=== PATIENT | female | born 1940 | race Caucasian/White ===

== ENCOUNTER 2023-04-17 14:40 | Emergency (ER) | payer MEDICARE, SELFPAY ==
--- NOTE | 2023-04-17 14:59 | CRLHL7_ITS ---
For Patients: As a result of the Century Cures Act, medical imaging exams and procedure reports are released immediately into your electronic medical record. You may view this report before your referring provider. If you have questions, please contact your health care provider. Indication: Cough Technique: Chest 2 views Comparison: None Findings/Impression: Cardiovascular and mediastinum: Mild cardiomegaly with prominent aortic tortuosity and atherosclerotic calcification. Lungs and pleural spaces: No pleural effusion or pneumothorax. Mild reticular interstitial prominence, question pulmonary edema. Bibasilar opacities could represent atelectasis or in the left lung base pneumonia. Bones and soft tissues: Status post vertebroplasty. Left glenohumeral osteoarthritis. Dictated by Paolo Rock MD @ 04/17/2023 3:58:32 PM (Electronically Signed)
[2023-04-17 15:00] VITALS: BP 112/65; PULSE 73; RESP 20; TEMP 36.3; O2SAT 94; BMI 29.3
[2023-04-17 15:43] LABS: PCR FLU A Negative PCR FLU A (Negative); PCR FLU B Negative PCR FLU B (Negative); PCR RSV Negative PCR RSV (Negative)
--- NOTE | 2023-04-17 16:05 | ED_ITS ---
HPI - General Adult General Chief complaint: Cough Stated complaint: Upper respiratoy issues-Severe cough Time Seen by Provider: 04/17/23 16:02 History of Present Illness HPI narrative: Patient here with wet cough, SOB, fatigue after having fevers Thursday and Thursday this week. Complaining of back pain as well. From memory care at [facility] called Christie Hope . Granddaughter brought in via private car. Orientated to self and family 82-year-old woman presenting to the emergency department with granddaughter in concern of fever and cough. Has been more tired. Having some back pain. No dysuria described. No rashes noted. Had a fever over . She has been chilled. They tried some Mucinex cough suppressant. Apparently not getting regularly medication in memory cares as it sounds like is between care providers as well. Family is proposing taking her home to convalesce. Related Data Home Medications Medication Instructions Recorded Confirmed acetaminophen 500 mg tablet (Pain mg PO 04/17/23 Reliever Extra Strength (acetaminophen)) aspirin 81 mg tablet,delayed 81 mg PO DAILY 04/17/23 04/17/23 release buspirone 5 mg tablet 5 mg BID 04/17/23 cholecalciferol (vitamin D3) 25 25 mcg PO DAILY 04/17/23 04/17/23 mcg (1,000 unit) tablet citalopram 20 mg tablet 20 mg PO DAILY 04/17/23 04/17/23 folic acid 1 mg tablet 1 mg PO DAILY 04/17/23 04/17/23 levothyroxine 125 mcg tablet PO 04/17/23 levothyroxine 75 mcg tablet 75 mcg PO QAM 04/17/23 04/17/23 lisinopril 10 mg tablet 10 mg PO DAILY 04/17/23 04/17/23 methotrexate sodium 2.5 mg tablet PO 04/17/23 olanzapine 2.5 mg tablet 2.5 mg PO QPM 04/17/23 04/17/23 trazodone 100 mg tablet 100 mg PO QPM 04/17/23 04/17/23 trazodone 50 mg tablet 50 mg PO QPM 04/17/23 04/17/23 Allergies Allergy/AdvReac Type Severity Reaction Status Date / Time sulfasalazine Allergy Unknown Verified 04/17/23 14:52 Review of Systems Status of ROS: Reports: 6 or more systems reviewed and unremarkable except as noted in History and below Exam Narrative: Exam Narrative: Pleasant. Alert and quickly interactive with this examiner. Huddled under a blanket. Skin is warm and dry. Lower extremities with trace pretibial edema. Well-perfused. Oropharynx is moist not erythematous. Heart in regular rate and rhythm is little distant. Trace bibasilar crepitus right greater than left. Good air movement. No wheeze. No stridor. Abdomen is little protuberant soft appears to be nontender. Const: Vital Signs, click to edit/add: Vital Signs - 24 hr 04/17/23 15:00 Temperature 97.4 F L Pulse Rate [Right Pulse Oximeter] 73 Respiratory Rate 20 Blood Pressure [Ri ght Upper Arm] 112/65 Pulse Oximetry 94 Oxygen Delivery Me thod Room Air Documenting provider has reviewed patient's vital signs: yes Course Vital Signs Vital signs: Initial Vital Signs Temperature 97.4 F L 04/17/23 15:00 Temperature Source Temporal Artery Scan 04/17/23 15:00 Pulse Rate 73 04/17/23 15:00 Pulse Rhythm Regular 04/17/23 15:00 Respiratory Rate 20 04/17/23 15:00 Blood Pressure 112/65 04/17/23 15:00 Blood Pressure Mean 80 04/17/23 15:00 Blood Pressure Position Sitting 04/17/23 15:00 Pulse Oximetry 94 04/17/23 15:00 Oxygen Delivery Method Room Air 04/17/23 15:00 Vital Signs Temperature 97.4 F L 04/17/23 15:00 Pulse Rate 73 04/17/23 15:00 Respiratory Rate 20 04/17/23 15:00 Blood Pressure 112/65 04/17/23 15:00 Pulse Oximetry 94 04/17/23 15:00 Oxygen Delivery Method Room Air 04/17/23 15:00 Temperature 97.4 F L 04/17/23 15:00 Pulse Rate 73 04/17/23 15:00 Respiratory Rate 20 04/17/23 15:00 Blood Pressure 112/65 04/17/23 15:00 Pulse Oximetry 94 04/17/23 15:00 Oxygen Delivery Method Room Air 04/17/23 15:00 Medical Decision Making MDM Narrative Medical decision making narrative: I would screen with triple swab given community prevalence. Has no urinary tract symptoms. No reproducible pain otherwise. Symptoms appear generalized consistent with infectious etiology. Does not appear to be septic. No history of reactive airway. No heart failure history. Triple swab was negative. Vitals generally good though mildly suppressed oxygen level. I think it would be a good idea to do a chest x-ray. Family in agreement. Chest x-ray reviewed by me shows some of what I think might be a mild lower r ight infiltrate or maybe atelectatic change. Otherwise chronic changes. Radiology over-read below. Chest 2 views Comparison: None Findings/Impression: Cardiovascular and mediastinum: Mild cardiomegaly with prominent aortic tortuosity and atherosclerotic calcification. Lungs and pleural spaces: No pleural effusion or pneumothorax. Mild reticular interstitial prominence, question pulmonary edema. Bibasilar opacities could represent atelectasis or in the left lung base pneumonia. Bones and soft tissues: Status post vertebroplasty. Left glenohumeral osteoarthritis. Discussed doing further evaluation; has been otherwise vitally well here. In this case I would treat as if potential pneumonia with close follow-up as needed. Family in agreement. See patient discharge plan Lab Data Lab results reviewed: Yes I reviewed the patient's lab results Labs: Lab Results 04/17/23 Range/Units 15:00 SARS-CoV-2 (PCR) Negative SARS-CoV-2 (Negative) Influenza Type A (PCR) Negative PCR FLU A (Negative) Influenza Type B (PCR) Negative PCR FLU B (Negative) RSV (PCR) Negative PCR RSV (Negative) Discharge Plan Discharge Clinical Impression: Cough, Pneumonia Patient Disposition: Home w/ Parent or Adult Condition: Stable Additional Instructions: I think it is fine to continue with your [id number] cough syrup/Mucinex. Can take up to 10 mL per dose. Consider sleeping under the mist of a cool mist humidifier. Yes. Menthol vapors might be helpful. Doxycycline from [facility]. 8 days is likely sufficient. Return for persistent increased rate or work of breathing, recurrence of fever, increasing weakness. Prescriptions: No Action buspirone 5 mg tablet 5 mg BID trazodone 50 mg tablet 50 mg PO QPM olanzapine 2.5 mg tablet 2.5 mg PO QPM aspirin 81 mg tablet,delayed release (DR/EC) 81 mg PO DAILY acetaminophen [Pain Reliever ES(acetaminophn)] 500 mg tablet PO levothyroxine 75 mcg tablet 75 mcg PO QAM citalopram 20 mg tablet 20 mg PO DAILY methotrexate sodium 2.5 mg tablet PO trazodone 100 mg tablet 100 mg PO QPM levothyroxine 125 mcg tablet PO lisinopril 10 mg tablet 10 mg PO DAILY folic acid 1 mg tablet 1 mg PO DAILY cholecalciferol (vitamin D3) 25 mcg (1,000 unit) tablet 25 mcg PO DAILY Stand Alone Forms: [facility] Info Inst[facility]
[2023-04-17 16:12] LABS: SARS PCR* Negative SARS-CoV-2 (Negative)
--- NOTE | 2023-04-17 17:16 | ED.NURSE ---
Report to FRANKIE Fall ([facility]). No questions or concerns. Request a written prescription to be sent with patient so they will be able to administer.
== END 2023-04-17 17:20 | disposition home or self-care (01) ==
LOC: ED 17:03
PROVIDERS: Emergency Provider Family Medicine; PCP Family Medicine
DX: J18.9 Pneumonia, unspecified organism (principal)
CPT/HCPCS: 71046; 87631; 99283; 99284

== ENCOUNTER 2023-09-29 13:59 | Outpatient (REF) | payer MEDICARE, SELFPAY ==
[2023-09-29 14:56] LABS: Chloride* 109 mmol/L (96-114)
[2023-09-29 14:57] LABS: Potassium* 4.8 mmol/L (3.6-5.1); Sodium* 140 mmol/L (135-149)
[2023-09-29 14:59] LABS: Creatinine* 0.9 mg/dL (0.5-1.5); Estimated Glomerular Filt Rate 63 ml/min
[2023-09-29 15:00] LABS: Anion Gap 15 mEq/L (7-15); Blood Urea Nitrogen* 20 mg/dL (7-30); Calcium* 9.6 mg/dL (8.4-10.6); Carbon Dioxide* 16 mmol/L (20-32); Glucose* 73 mg/dL (60-115)
== END 2023-09-29 14:00 | disposition home or self-care (01) ==
LOC: NPINS 13:59
PROVIDERS: PCP Family Medicine; Visit Provider Nurse Practitioner Gerontology
DX: R60.9 Edema, unspecified (principal)
CPT/HCPCS: 80048